=== PATIENT | female | born 1955 | race Caucasian/White ===

== ENCOUNTER → 2019-07-05 | Day surgery (SDC) | payer OTHER ==
[~2019-07-05] MED LIST: BACITRACIN 50,000 UNIT VIAL ONE; BUPIVACAINE HCL 0.5% INJ 30 ML VIAL INJ ONE; CEFAZOLIN SOD 1 GM/NS 50ML 100 ML IV ONE; DEXAMETHASONE SOD PHOS INJ 4 MG/ML VIAL ONE; DIPHENHYDRAMINE HCL INJ 50 MG/ML VIAL ONE; FENTANYL CITRATE/PF 100MCG/2 ML INJ ONE; KETOROLAC TROMETHAMINE 30 MG/ML VIAL ONE; LIDOCAINE HCL 2% LOCAL INJ 5 ML SDV VIAL INJ ONE; METFORMIN HCL500 MG PO; METOCLOPRAMIDE HCL 10 MG/2ML VIAL ONE; MIDAZOLAM HCL 2 MG/2 ML VIAL ONE; MORPHINE SULFATE INJ 4 MG/ML INJ 1ML ONE; MULTI-VITAMIN1 EACH PO; NEOSTIGMINE 1 MG/ML 10ML VIAL ONE; OMEGA 3 PO; ONDANSETRON HCL INJ 2MG/ML 2ML 2 MG/ML VIAL ONE; PROPOFOL IV EMULSION 10 MG/ML 20 ML VIAL ONE; SEVOFLURANE INHAL SOLN 250 ML PEN BTL ONE; VIT C PO; vit d3 PO
[2019-07-05 07:26] LABS: ANION GAP 13.3 mmol/L (8-16); BLOOD UREA NITROGEN 16 mg/dL (7-26); BUN/CREATININE RATIO 21 (6-25); CALCIUM 9.6 mg/dL (8.4-10.2); CARBON DIOXIDE 23 mmol/L (22-29); CHLORIDE 106 mmol/L (98-107); CREATININE, SERUM 0.75 mg/dL (0.57-1.11); EST GLOMERULAR FILTRATION RATE > 60 ML/MIN (60-); GLUCOSE 154 mg/dL (74-118); POTASSIUM 4.3 mmol/L (3.5-5.1); SODIUM 138 mmol/L (136-145)
[2019-07-05 07:36] LABS: BASOPHILS % 0.5 % (0.0-1.0); EOSINOPHILS # (AUTO) 0.2 (0.0-0.4); EOSINOPHILS % 2.1 % (0.0-6.0); HEMATOCRIT 42.1 % (34.2-44.1); HEMOGLOBIN 13.7 g/dL (12.0-16.0); LYMPHOCYTES # (AUTO) 2.2 (1.0-3.2); LYMPHOCYTES % 30.2 % (18.0-39.1); MEAN CORPUSCULAR HEMOGLOBIN 29.1 pg (28-32); MEAN CORPUSCULAR HGB CONC 32.5 g/dL (31-35); MEAN CORPUSCULAR VOLUME 89.6 fL (81-99); MONOCYTES # (AUTO) 0.7 (0.2-0.8); MONOCYTES % 9.9 % (4.4-11.3); NEUTROPHILS # (AUTO) 4.2 (2.1-6.9); PLATELET COUNT 316 x10e3/uL (140-360); RED CELL DISTRIBUTION WIDTH 12.9 % (11.7-14.4)
--- NOTE | 2019-07-05 08:17 | Diagnostic Imaging Report ---
EXAMINATION: CHEST 2 VIEWS INDICATION: Preop for ankle surgery COMPARISON: None FINDINGS: TUBES and LINES: None. LUNGS: Normal lung volumes. Lungs are clear. No consolidations. PLEURA: No pleural effusion or pneumothorax. HEART AND MEDIASTINUM: The cardiomediastinal silhouette is unremarkable. BONES AND SOFT TISSUES: No acute osseous lesion. Soft tissues are unremarkable. UPPER ABDOMEN: No free air under the diaphragm. IMPRESSION: No acute thoracic radiographic abnormality. Signed by: Josse Painter DO on 07/05/2019 8:13 AM
--- NOTE | 2019-07-05 09:31 | Operative Report ---
DATE OF PROCEDURE: 07/05/2019 SURGEON: Omar Dorsey DPM ROOM NUMBER: [facility]. PREOPERATIVE DIAGNOSES: Displaced ankle fracture, right foot and at-risk diabetic patient during COVID-19 restrictions. POSTOPERATIVE DIAGNOSES: Displaced ankle fracture, right foot and at-risk diabetic patient during COVID-19 restrictions. TITLE OF THE OPERATION: Open reduction with internal fixation of the ankle, right foot. PROCEDURE IN DETAIL: The patient was taken to the operating room in a mildly sedated state and placed on the operating table in supine position. Following induction of general anesthetic, the right lower extremity was elevated to 60 degrees to exsanguinate before inflating the pneumatic thigh tourniquet to 350 mmHg for good hemostasis. Right lower extremity was placed on the operating table prior to performing following procedure. After having been prepped and draped in the usual aseptic manner. A fluoroscopy unit was used to assess the posterior and lateral displacement of the fibular fracture, which was oriented from distal anterior to posterolateral. The fracture fragment was realigned with manipulation and a large bone clamp was applied to hold position. The distal fibula was then entered with a 0.045 K-wire, which advanced across the entirety of the fracture and allowed for a fracture realignment as well as reorientation of the bone with distraction in the length. A distal incision was placed and this was at the insertion of the K-wire into the distal fibula. A 0.045 K-wire was used to advanced cannulated along the K-wire through the distal fibula and exiting proximally above the fracture site, thus creating adequate compression. This was confirmed on radiographs, three views, and ankle joint range of motion was noted to be free of any impediment. That area was then irrigated with copious amounts of sterile saline solution. Closure of the clamp sites as well as the distal incision after K-wire removal was achieved with 4-0 nylon. The areas of surgery were then blocked with 0.5 Marcaine and released the pneumatic thigh tourniquet showed normal hyperemic flush to all digits of the right foot. The patient left the operating room, vital signs stable in apparent satisfactory condition, and having tolerated both anesthetic and procedure very well. ROSAMARIA Salas/ANIRUDH /[id number]
[2019-07-05 09:50] VITALS: BP 141/81
== END | disposition home or self-care (01) ==
LOC: OR 05:48
PROVIDERS: ATTEND Podiatrist Foot Surgery
DX: S82.831A Other fracture of upper and lower end of right fibula, initial encounter for closed fracture (principal); E11.9 Type 2 diabetes mellitus without complications; R09.81 Nasal congestion; T78.40XA Allergy, unspecified, initial encounter; F41.9 Anxiety disorder, unspecified; X58.XXXA Exposure to other specified factors, initial encounter; W01.0XXA Fall on same level from slipping, tripping and stumbling without subsequent striking against object, initial encounter; Z79.84 Long term (current) use of oral hypoglycemic drugs
CPT/HCPCS: 27792; 36415; 71046; 76000; 80048; 82948; 85025; 93005; C1713 ×3; J0690; J1100; J1200; J1885; J2001; J2250; J2270; J2405; J2704; J2710; J2765; J3010